=== PATIENT | female | born 1995 | race Caucasian/White ===

== ENCOUNTER 2020-03-25 02:58 | Emergency (ER) | payer OTHER, SELFPAY ==
--- NOTE | ~2020-03-25 | XR_ITS ---
EXAMINATION: XR chest 2V DATE: 03/25/2020 03:40 INDICATION: Shortness of breath TECHNIQUE: PA and lateral views of the chest were obtained. COMPARISON: Chest radiograph dated 10/15/2018 FINDINGS: Blunting at the posterior sulci consistent with trace bilateral pleural effusions. No airspace opacit ies, pulmonary edema or pneumothorax. The cardiomediastinal silhouette is normal. Visualized bones an d soft tissues are unremarkable. IMPRESSION: 1. Trace bilateral pleural effusions. Reviewed, dictated and finalized at location A.
[2020-03-25 03:01] VITALS: BP 119/68; PULSE 115; RESP 19; TEMP 36.3; O2SAT 100
[2020-03-25] MEDS: hydrOXYzine HCL 25 MG TABLET PO (03:26)
[2020-03-25 03:36] LABS: Basophils Absolute Auto 0.1 K/mm3 (0.0-0.1); Basophils Percent Auto 0.7 % (0.2-1.2); Eosinophils Absolute Auto 0.5 K/mm3 (0-0.3); Eosinophils Percent Auto 5.7 % (0-4.4); Hemoglobin 12.5 g/dL (12.0-15.0); Immature Granulocyte Absolute 0.02 K/mm3 (0.00-0.031); Immature Granulocyte Percent A 0.2 % (0-0.5); Lymphocytes Absolute Auto 2.66 K/mm3 (0.9-3.2); Lymphocytes Percent Auto 29.8 % (18.3-44.2); Mean Corpuscular HGB Conc 32.9 g/dl (32-36); Mean Corpuscular Hemoglobin 28.2 pg (26-34); Mean Corpuscular Volume 85.8 fl (80-100); Mean Platelet Volume 10.7 fl (7.4-10.4); Monocytes Absolute Auto 0.9 K/mm3 (0.1-0.6); Monocytes Percent Auto 9.5 % (2.6-8.5); Neutrophils Absolute Auto 4.8 K/mm3 (1.3-6.7); Neutrophils Percent Auto 54.1 % (45.5-73.1); Platelet Count Result 295 k/mm3 (150-375); Red Blood Count 4.43 M/mm3 (4.2-5.4); Red Cell Distribution Width 12.7 % (11.5-14.5); White Blood Count 8.9 K/mm3 (4.5-10.0)
[2020-03-25 03:48] LABS: Blood Urea Nitrogen 8 mg/dL (7-17); Calcium 9.1 mg/dL (8.4-10.2); Carbon Dioxide 27 mmol/L (22-30); Chloride 105 mmol/L (98-107); Estimated CRCL calculation 113 ml/min; Estimated Glomerular Filt Rate > 60; Glucose 106 mg/dL (65-105); Potassium 3.8 mmol/L (3.4-5.0); Sodium 138 mmol/L (137-145)
--- NOTE | 2020-03-25 04:20 | ED.GENADULT ---
HPI - General Adult General Chief complaint: Chest Pain Stated complaint: chest pain Time Seen by Provider: 03/25/20 03:06 History of Present Illness HPI narrative: Patient is a 24-year-old female who presents to the ER with chest pain. She thinks her chest pain is related to anxiety. It is occurred several times over the last month and a half. Will occur without warning at night. She become very tearful and start crying and feel tightness in her chest and be short of breath. She is scared that there could be something more sinister wrong with her despite not having any significant comorbid illnesses. She said no fevers or chills or sweats. Denies any new stresses but does report that all this started right after she moved home from [place] and began living by herself without her boyfriend. She also reports she has not been on her antidepressants for several months. She does not have any insurance to go see a psychiatrist or psychologist. Furthermore she is working 2 jobs. She does not feel like these jobs are particularly stressful for her. No thoughts of self-harm or harm towards others. Related Data Allergies Allergy/AdvReac Type Severity Reaction Status Date / Time Penicillins Allergy Mild Unknown Verified 11/19/18 01:41 Review of Systems Review of Systems: All systems reviewed & are unremarkable except as noted in HPI and below Constitutional: Constitutional: Denies chills, Denies fever(s) and Denies weakness ENT: Denies nasal congestion and Denies sore throat Cardiovascular: Cardiovascular: Reports chest pain, Denies rapid heart rate and Denies radiating jaw, neck or arm pain Respiratory: Respiratory: Denies cough, Reports dyspnea and Denies wheezing Psychiatric: Psychiatric: Reports anxiety, Denies depression, Denies homicidal ideation and Denies suicidal ideation [facility] Past Medical History Medical History (Updated 03/25/20 @ 04:26 by Christopher Estrada MD) Anxiety Asthma Depression GERD (gastroesophageal reflux disease) History of bipolar disorder Surgical History Surgical History (Updated 03/25/20 @ 04:23 by Christopher Estrada MD) History of tonsillectomy and adenoidectomy Social History Social History (Updated 03/25/20 @ 04:23 by Christopher Estrada MD) Substance use type: marijuana Gender identity (if verbalized by the patient): Female Exam Narrative: Exam Narrative: GENERAL: Crying, well-nourished. HEAD: Normocephalic, atraumatic. ENT: Mucous membranes moist. CHEST: Clear to auscultation. No respiratory distress. HEART: Regular rate and rhythm. Normal peripheral pulses. ABDOMEN: Soft, nontender, nondistended. EXTREMITIES: Normal range of motion. No edema. SKIN: Warm, dry, no rash. NEURO: No focal deficits. Alert and oriented x3. PSYCH: Anxious, no SI or HI, not responding to internal stimuli.. Course Vital Signs Vital signs: Vital Signs Temperature 97.3 F L 03/25/20 03:01 Pulse Rate 115 H 03/25/20 03:01 Respiratory Rate 19 03/25/20 03:01 Blood Pressure 119/68 03/25/20 03:01 Pulse Oximetry 100 03/25/20 03:01 Temperature 97.3 F L 03/25/20 03:01 Pulse Rate 115 H 03/25/20 03:01 Respiratory Rate 19 03/25/20 03:01 Blood Pressure 119/68 03/25/20 03:01 Pulse Oximetry 100 03/25/20 03:01 Medical Decision Making Vital Signs Vital Signs: Vital Signs Temperature 97.3 F L 03/25/20 03:01 Pulse Rate 115 H 03/25/20 03:01 Respiratory Rate 19 03/25/20 03:01 Blood Pressure 119/68 03/25/20 03:01 Pulse Oximetry 100 03/25/20 03:01 Temperature 97.3 F L 03/25/20 03:01 Pulse Rate 115 H 03/25/20 03:01 Respiratory Rate 19 03/25/20 03:01 Blood Pressure 119/68 03/25/20 03:01 Pulse Oximetry 100 03/25/20 03:01 Lab Data Result diagrams: 03/25/20 03:27 03/25/20 03:27 Labs: Lab Results 03/25/20 03/25/20 Range/Units 03:27 03:27 WBC 8.9 (4.5-10.0) K/mm3 RBC 4.43 (4.2-5.4) M/mm3 Hgb
[2020-03-25 04:35] LABS: Add Urine Microscopic? NO; Appearance Urine Clear (Clear); Bilirubin Urine Negative (Negative); Blood Urine Negative (Negative); Color Urine Colorless (Yellow); Glucose Urine UA Negative (Negative); Ketones Urine Negative (Negative); Leukocyte Esterase Ur Negative LEU/UL (Negative); Mucus Urine Rare /lpf; Nitrate Urine Negative (Negative); Protein Urine Negative (Negative); RBC Urine 0-2 /hpf (0-2); Squamous Epithelial Cell Urine Few /hpf (Few); Urobilinogen Urine Negative mg/dL (<2.0); WBC Urine 0-3 /hpf
[2020-03-25 04:36] LABS: Specific Grav Ur 1.004 (1.001-1.035)
[2020-03-25 04:39] VITALS: BP 121/73; PULSE 89; RESP 16; TEMP 36.8; O2SAT 100
--- NOTE | 2020-03-25 13:41 | ECG_ITS ---
Measurements Intervals [place] Rate: 87 P: 67 VA: 144 QRS: 50 QRSD: 88 T: 35 QT: 350 QTc: 422 Interpretive Statements SINUS RHYTHM NORMAL ECG Electronically Signed On 03-25-2020 14:20:29 CDT by Dav Webb D.O.
== END 2020-03-25 04:40 | disposition home or self-care (01) ==
PROVIDERS: Emergency Provider Emergency Medicine
DX: F41.9 Anxiety disorder, unspecified (principal); F32.9 Major depressive disorder, single episode, unspecified; K21.9 Gastro-esophageal reflux disease without esophagitis; J45.909 Unspecified asthma, uncomplicated
CPT/HCPCS: 36415; 71046; 80048; 81003; 85025; 93005; 99283; A9270

== ENCOUNTER 2020-04-18 00:51 | Emergency (ER) | payer OTHER, SELFPAY ==
[2020-04-18 00:54] VITALS: BP 125/76; PULSE 80; RESP 19; TEMP 36.6; O2SAT 100
--- NOTE | 2020-04-18 01:15 | ECG_ITS ---
Measurements Intervals [place] Rate: 72 P: 73 WV: 133 QRS: 52 QRSD: 94 T: 36 QT: 351 QTc: 386 Interpretive Statements SINUS RHYTHM WITH SINUS ARRHYTHMIA NORMAL ECG Electronically Signed On 04-18-2020 6:51:51 CDT by Dav Webb D.O.
--- NOTE | 2020-04-18 01:16 | ED.GENADULT ---
HPI - General Adult General Chief complaint: Extremity Injury, Upper Stated complaint: pain in l arm Time Seen by Provider: 04/18/20 01:09 Source: patient Mode of arrival: ambulatory Limitations: no limitations History of Present Illness HPI narrative: This patient is a 24 year old female who presents for evaluation of left arm pain. She states around 11 pm tonight she developed dull ache to her left arm. She denies sob, nausea, vomiting, chest pain, fever, weakness or numbness. She states since she does not know what caused it she came to ER. She has not taken any medication for improvement of pain. Pain is 2/10. Onset (ago): hour(s) (2) Related Data Home Medications Medication Instructions Recorded Confirmed albuterol sulfate INHALATION 04/18/20 Allergies Allergy/AdvReac Type Severity Reaction Status Date / Time Penicillins Allergy Mild Unknown Verified 04/18/20 01:25 Review of Systems Review of Systems: All systems reviewed & are unremarkable except as noted in HPI and below Constitutional: Constitutional: Denies chills and Denies fever(s) Cardiovascular: Cardiovascular: Denies chest pain Respiratory: Respiratory: Denies cough, Denies dyspnea and Denies wheezing Gastrointestinal: Gastrointestinal: Denies abdominal pain, Denies nausea and Denies vomiting Musculoskeletal: Musculoskeletal: Reports myalgias (left arm) PMFSH Past Medical History Medical History (Updated 04/18/20 @ 02:30 by Claudia Coleman MD) Anxiety Asthma Depression GERD (gastroesophageal reflux disease) History of bipolar disorder Surgical History Surgical History (Updated 03/25/20 @ 04:23 by Christopher Estrada MD) History of tonsillectomy and adenoidectomy Social History Social History (Updated 03/25/20 @ 04:23 by Christopher Estrada MD) Substance use type: marijuana Gender identity (if verbalized by the patient): Female Exam Narrative: Exam Narrative: GENERAL: Well-appearing, well-nourished, and in no acute distress. HEAD: Normocephalic, atraumatic EYES: PERRLA and EOMI, conjunctiva clear without discharge THROAT:Mucous membranes moist, Oropharynx normal without erythema, exudate, peritonsillar swelling or fluctuance NECK: Supple, without lymphadenopathy or mass RESPIRATORY: No respiratory distress, Airway patent, Respirations non-labored, Clear to auscultation without rales, rhonchi or wheeze HEART: Regular rate and rhythm. No murmur heard. Normal peripheral pulses. ABDOMEN: Soft, nontender, nondistended, normal active bowel sounds. No masses. No rebound or guarding, No organomegaly. EXTREMITIES: No edema, normal strength with full range of motion. SKIN: Warm, dry, normal color without rash NEURO: Alert and oriented x3. CN 2-12 grossly intact. No focal deficits. PSYCH: Normal mood and affect. Course Reevaluation(s) Reevaluation #1: PAtient pain has completely resolved. This pain is mostly likely GERD. Date: 04/18/20 Time: 02:28 Vital Signs Vital signs: Vital Signs Temperature 97.9 F 04/18/20 00:54 Pulse Rate 80 04/18/20 00:54 Respiratory Rate 19 04/18/20 00:54 Blood Pressure 125/76 04/18/20 00:54 Pulse Oximetry 100 04/18/20 00:54 Temperature 97.9 F 04/18/20 00:54 Pulse Rate 76 04/18/20 02:48 Respiratory Rate 16 04/18/20 02:48 Blood Pressure 123/65 04/18/20 02:48 Pulse Oximetry 99 04/18/20 02:48 Medical Decision Making Vital Signs Vital Signs: Vital Signs Temperature 97.9 F 04/18/20 00:54 Pulse Rate 80 04/18/20 00:54 Respiratory Rate 19 04/18/20 00:54 Blood Pressure 125/76 04/18/20 00:54 Pulse Oximetry 100 04/18/20 00:54 Temperature 97.9 F 04/18/20 00:54 Pulse Rate 76 04/18/20 02:48 Respiratory Rate 16 04/18/20 02:48 Blood Pressure 123/65 04/18/20 02:48 Pulse Oximetry 99 04/18/20 02:48 ECG Data EKG #1: ECG completion date: 04/18/20 ECG completion time: 01:21 EKG Interpreta
[2020-04-18] MEDS: IBUPROFEN 400 MG TABLET 800 MG PO (01:20)
[2020-04-18] MEDS: BELLADONNA ALK/PHENOB ELIX 10 ML, MAG HYDROX/ALUMINUM HYD/SIMETH 30 ML, LIDOCAINE HCL 2... PO (01:21)
[2020-04-18 02:48] VITALS: BP 123/65; PULSE 76; RESP 16; O2SAT 99
== END 2020-04-18 02:49 | disposition home or self-care (01) ==
PROVIDERS: Emergency Provider General Practice
DX: M79.602 Pain in left arm (principal); J45.909 Unspecified asthma, uncomplicated; K21.9 Gastro-esophageal reflux disease without esophagitis
CPT/HCPCS: 93005; 99283; A9270

== ENCOUNTER 2022-05-10 18:38 | Emergency (ER) | payer OTHER, SELFPAY ==
--- NOTE | 2022-05-10 18:42 | ED.BACK ---
HPI - Back Pain/Injury General Chief Complaint: Back Pain/Injury Stated Complaint: back pain Time Seen by Provider: 05/10/22 19:05 Source: patient and RN notes reviewed Mode of arrival: ambulatory Limitations: no limitations History of Present Illness HPI Narrative: 26-year-old female presents concern for acute back pain. She reports right lower back pain started on Monday and is gotten worse. Reports she is use a heating pad and ibuprofen and rest without relief. Reports she has had similar back pain in the past that was relieved with at home remedies, those are not working this time. She denies any injury or trauma. She denies loss of bowel or bladder function, perianal anesthesia, abdominal pain, fever. She reports she has trouble walking due to the pain. She denies particular unilateral weakness MD elicited complaint: back pain Related Data Home Medications Medication Instructions Recorded Confirmed albuterol sulfate 90 mcg/actuation inhalation 04/18/20 10/08/21 aerosol inhaler venlafaxine 150 mg 150 mg PO DAILY 09/07/21 10/08/21 capsule,extended release 24 hr Allergies Allergy/AdvReac Type Severity Reaction Status Date / Time Penicillins Allergy Mild Unknown Verified 10/08/21 08:12 Review of Systems Review of Systems: CONSTITUTIONAL: Denies malaise, chills, sweats, or fever. CARDIOVASCULAR: Denies chest pain, palpitations, or edema. RESPIRATORY: Denies cough or dyspnea. GASTROINTESTINAL: Denies abdominal pain, nausea, vomiting, diarrhea, loss of bowel function GENITOURINARY: Denies dysuria, hematuria, frequency, loss of bladder function. SKIN: Denies rash or itching. MUSCULOSKELETAL: Reports right low back pain NEUROLOGIC: Denies numbness, weakness, or headache. All systems reviewed & are unremarkable except as noted in HPI and below PMFSH Past Medical History Medical History Anxiety Asthma Depression GERD (gastroesophageal reflux disease) History of bipolar disorder Surgical History Surgical History History of tonsillectomy and adenoidectomy Social History Social History Social History: Single Years smoked: 7 Smoking status: Never smoker Tobacco type: cigarettes Second hand tobacco smoke exposure: Yes Alcohol intake: current Alcohol use details: Occasionally Substance use: current Substance use type: marijuana Last use: Daily usage Gender identity (if verbalized by the patient): Female Comments At time of signature, agree with nursing past medical, surgical, social and family history. There is no relevant family history pertinent to the presenting complaint Exam Narrative: GENERAL: Well-appearing, well-nourished, and in no acute distress. HEAD: Normocephalic, atraumatic. EYES: PERRLA and EOMI. NECK: Supple. No lymphadenopathy. CHEST: Clear to auscultation. No respiratory distress. HEART: Regular rate and rhythm. Distal pulses palpable and equal, cap refill <3 seconds ABDOMEN: Soft, nontender, nondistended, normal active bowel sounds, no palpable or pulsatile masses. No CVA tenderness MUSCULOSKELETAL: Normal range of motion and strength in all extremities; 5/5 strength with knee flexion and extension, plantar flexion and extension. Normal sensation in dermatomal distributions with sensitivity to light touch and pain. No midline back tenderness to palpation. No paraspinal tenderness. Patient expresses that she would not prefer to stand up due to pain SKIN: Warm, dry, no rash. No ecchymosis, erythema, open wounds to back. NEURO: No focal deficits. Alert and oriented x3. Reflexes intact. Normal gait. PSYCH: Normal mood and affect Course Course Emergency Course: Patient is aware of diagnosis, understands and agrees to treatment plan. Anticipatory guidance given. Patient agrees to follow-up as directed and is aw
[2022-05-10 18:46] VITALS: BP 134/79; PULSE 108; RESP 16; TEMP 37.2; O2SAT 99
[2022-05-10 18:47] VITALS: BP 134/79; PULSE 108; RESP 16; TEMP 37.2; O2SAT 99
[2022-05-10] MEDS: methylPREDNISolone SOD SUCC 125 MG VIAL IM (19:15)
== END 2022-05-10 19:50 | disposition home or self-care (01) ==
PROVIDERS: Emergency Provider Nurse Practitioner; PCP Family Medicine
DX: M54.50 Low back pain, unspecified (principal); J45.909 Unspecified asthma, uncomplicated; K21.9 Gastro-esophageal reflux disease without esophagitis; F41.9 Anxiety disorder, unspecified; F32.A Depression, unspecified
CPT/HCPCS: 96372; 99213; G0463; J2930

== ENCOUNTER 2023-07-19 07:20 | Outpatient (CLI) | payer OTHER, SELFPAY ==
--- NOTE | ~2023-07-19 | XR_ITS ---
XR hip RT min 2V 07/19/2023 07:40 INDICATION: Right hip pain PROCEDURE: 2 views right hip COMPARISON: No prior studies for comparison. FINDINGS: Fracture, dislocation or subluxation is not identified. The soft tissues appear within norm al limits. No foreign bodies are identified. IMPRESSION: 1: NO ACUTE BONE OR JOINT ABNORMALITY IDENTIFIED. Reviewed, dictated and finalized at location B.
--- NOTE | ~2023-07-19 | XR_ITS ---
LUMBAR SPINE INDICATION: Low back pain TECHNIQUE: 3 views lumbar spine COMPARISON: 08/24/2013 FINDINGS: No fracture, subluxation or dislocation. No evidence for spondylolysis or spondylolisthesi s. Vertebral bodies are preserved. Mild disc narrowing at L5-S1. No evidence for spondylolisthesis. IMPRESSION: 1: Mild disc narrowing at L5-S1, consistent with and degenerative disc disease. Reviewed, dictated and finalized at location B.
== END 2023-07-19 07:21 | disposition home or self-care (01) ==
PROVIDERS: PCP Family Medicine; Visit Provider Family Medicine
DX: M51.27 Other intervertebral disc displacement, lumbosacral region (principal)
CPT/HCPCS: 72100; 73502

== ENCOUNTER 2023-09-27 14:45 | Outpatient (RCR) | payer OTHER, SELFPAY ==
--- NOTE | 2023-08-17 15:53 | PTOPEVAL1 ---
Assessment and note entered by Madhav Valdez, PT Evaluation Information Assessment Status Evaluation Diagnosis Low back pain Onset February 2023 Subjective Information Reports that she felt she had a small lump on her right side of her low back. She has had back pain and panic attacks which have caused her to lose her last job. Bending and lifting seem to cause her the most problems. She has been having trouble sleeping and finding a comfortable position. Pain has been present for about 8 years. It is mostly in her back on her right side. She does not typically have radiation. Struggles with putting weight on her R leg when her back goes out . Reported Pain Level Pain Score 4: Self Report Assessment PT Clinical Summary Patient presents with signs and symptoms consistent with discogenic symptoms. Had initial posiitve reaction to extension based activity. Will benefit from skilled therapy to address core weakness, hip mobility, and body mechanics. Plan of Care Interventions Electrical Stimulation,Hot Pack/Cold Pack,Manual Therapy,Neuro Re-education,Therapeutic Activities, Therapeutic Exercise PT Services Indicated Yes Treatment Frequency and 2x/week for 4 weeks Duration These treatments will address the objective and functional deficits as defined above. The patient will be advanced safely and appropriately in order for the patient to progress towards his/her prior level of function. Additional exercises will be introduced and as well as a comprehensive home exercise program upon discharge, if needed, ?to ensure carryover of functional gains achieved in the clinic. This treatment plan has been reviewed and agreement upon by the patient.
--- NOTE | 2023-08-17 15:53 | OPREHPOC ---
Outpatient Therapy Plan of Care This is a Multidisciplinary Plan of Care that may contain components documented by all disciplines (PT, OT, and ST.) PT Problem 1 PT Problem #1 Knowledge Deficit PT Goal 1 Goal Independent with HEP Target Visit 4 PT Problem 2 PT Problem #2 Pain PT Goal 1 Goal Patient will report 0/10 pain with sit to stand activity Target Visit 8 PT Problem 3 PT Problem #3 Impaired Flexibility PT Goal 1 Goal Demonstrate no hip rotational restriction to improve pelvic balance Target Visit 4 PT Problem 4 PT Problem #4 Impaired Strength PT Goal 1 Goal Improve lower abdominal strength to 4/5 to improve lumbar stability with ADLs Target Visit 8
--- NOTE | 2023-09-27 15:38 | PTOPDC ---
Assessment and note entered by Arsen Fulton Evaluation Information Assessment Status Discharge Diagnosis low back pain Onset February 2023 Subjective Information Pt. reports that she has been doing her Yoga exercises 5x/week. She expresses frustration as nothing brings relief from her back pain. She reports that she cannot stand for more than 15 minutes without having to lean on an object for relief from her back pain. She continues to describe occasional symptoms radiating into the right l.e. She reports she will return to her doctor and his hopeful for an MRI. Reported Pain Level Pain Score 4: Self Report Assessment PT Clinical Summary Ms. Wolf's treatment thus far has focused on core strength, postural awareness, flexibliity and pain reduction. At this time she continues to present with fluctuating reports of pain. Presentation continues to be consistent with lumbar instability and she has been provided a comprehensive program focused on stability and educated in regards to benefits of exercise. At this time recommend pt. return to the doctor in regards to her chronic pain and discuss further testing. Plan of Care PT Services Indicated D/C from PT to an independent HEP.
== END 2023-09-27 16:40 | disposition home or self-care (01) ==
LOC: ANHPT 14:45
PROVIDERS: PCP Family Medicine; Visit Provider Family Medicine
DX: M54.50 Low back pain, unspecified (principal)
CPT/HCPCS: 97014; 97110; 97140; 97161; 97530; G0283

== ENCOUNTER 2024-01-29 15:18 | Outpatient (CLI) | payer OTHER, SELFPAY ==
--- NOTE | ~2024-01-29 | MR_ITS ---
EXAMINATION: MR lumbar spine wo con DATE: 01/29/2024 16:01 INDICATION: Low back pain. TECHNIQUE: Magnetic resonance imaging (MRI) of the lumbar spine was performed without intravenous con trast. Sequences included sagittal T2-weighted FSE, sagittal T2-weighted FS FSE, sagittal T1-weighted FSE, and axial T2-weighted FSE. COMPARISON: Lumbar spine radiographs 07/19/2023 FINDINGS: There is 4 degrees dextrocurvature of lumbar spine. There is 3 mm retrolisthesis of L5 on S 1. There is moderately decreased disc height at L5-S1. The distal spinal cord signal intensity is nor mal. The conus medullaris is at L1-L2. The following disc levels are specifically discussed: L1-L2: The disc does not extend beyond the endplate margin. There is no facet joint osteoarthritis. T here is no neural foraminal stenosis. There is no central canal stenosis. L2-L3: The disc does not extend beyond the endplate margin. There is no facet joint osteoarthritis. T here is no neural foraminal stenosis. There is no central canal stenosis. L3-L4: The disc does not extend beyond the endplate margin. There is mild bilateral facet joint osteo arthritis. There is no neural foraminal stenosis. There is no central canal stenosis. L4-L5: The disc does not extend beyond the endplate margin. There is moderate bilateral facet joint o steoarthritis. There is no neural foraminal stenosis. There is no central canal stenosis. L5-S1: There is a large right central extrusion. There is mild bilateral facet joint osteoarthritis. There is no neural foraminal stenosis. There is mild central canal stenosis. There is moderate stenos is of the right lateral recess. IMPRESSION: 1. Large right central extrusion at L5-S1 with moderate stenosis of right lateral recess. Reviewed, dictated and finalized at location A. IMPRESSION: 1. Large right central extrusion at L5-S1 with moderate stenosis of right later al recess.
== END 2024-01-29 15:19 | disposition home or self-care (01) ==
LOC: ANHIMG 15:19
PROVIDERS: PCP Family Medicine; Visit Provider Nurse Practitioner Family
DX: I73.00 Raynaud's syndrome without gangrene (principal); M51.26 Other intervertebral disc displacement, lumbar region
CPT/HCPCS: 72148

== ENCOUNTER 2024-03-13 08:56 | Outpatient (CLI) | payer OTHER, SELFPAY ==
--- NOTE | ~2024-03-13 | US_ITS ---
EXAMINATION: US art doppler w press GENET DATE: 03/13/2024 10:41 INDICATION: Raynaud's phenomenon. TECHNIQUE: Segmental pressures and plethysmographic and Doppler waveforms of the brachial and lower e xtremity arteries were obtained. COMPARISON: None. FINDINGS: Right and left brachial artery pressures of 120 mm Hg and 107 mm Hg, respectively, are concordant (no rmal difference <= 30 mmHg). The right high-thigh pressure index is 1.24 (normal > 1.2). The right ankle-brachial index (ASHLEY) is 1 .13 (normal >= 0.9-1.0). The right great toe-brachial index (TBI) is 0.82 (normal >= 0.65). The right lower extremity segmental pressure gradients are normal (normal gradients <= 20-30 mmHg between ifeanyi cent levels on the same leg or the same levels on the two legs). Arterial Doppler waveforms are bipha sic in common femoral artery, superficial femoral artery, popliteal artery, monophasic and posterior tibial artery, and biphasic in dorsalis pedis. The left high-thigh pressure index is 1.13. The left ASHLEY is 1.20. The left TBI is 0.73. The left lowe r extremity segmental pressure gradients are normal. Arterial Doppler waveforms are monophasic in com mon femoral artery, biphasic in superficial femoral artery, and at least triphasic from popliteal art sandhya to the ankle. IMPRESSION: 1. No significant arterial occlusive disease. Reviewed, dictated and finalized at location A.
== END 2024-03-13 08:57 | disposition home or self-care (01) ==
LOC: ANHIMG 08:59
PROVIDERS: PCP Nurse Practitioner Family; Visit Provider Nurse Practitioner Family
DX: M54.50 Low back pain, unspecified (principal); I73.00 Raynaud's syndrome without gangrene
CPT/HCPCS: 93923